=== PATIENT | male | born 2000 | race Two or more races ===

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

== ENCOUNTER 2022-07-27 21:00 | Emergency (ER) | payer SELFPAY ==
[~2022-07-27] VITALS: Ht 180.3 cm; Wt 90.7 kg
[2022-07-27 22:07] VITALS: BP 173/86
--- NOTE | 2022-07-27 22:24 | NUR ---
Patient discharged to home in stable condition. Written and verbal after care instructions given. Patient verbalizes understanding of instruction.
--- NOTE | 2022-07-27 22:24 | NUR ---
SLING PROVIDED TO LEFT SHOULDER
== END 2022-07-27 22:25 | disposition home or self-care (01) ==
LOC: ER 21:01
DX: M75.91 Shoulder lesion, unspecified, right shoulder (principal); Z60.2 Problems related to living alone